=== PATIENT | female | born 1955 | race Caucasian/White ===

== ENCOUNTER 2020-12-20 05:45 | Emergency (ER) | payer MEDICARE, OTHER ==
[2020-12-20] MEDS ORDERED: Nitroglycerin 0.4 MG Tab.SL SL PRN (06:02)
[2020-12-20] MEDS ORDERED: Aspirin 81 MG Tab.Chew PO ONE (06:02)
[2020-12-20] MEDS ORDERED: Morphine 4 MG/ML Syringe IVPUSH PRN (06:02)
--- NOTE | 2020-12-20 06:05 | EDM.PDOC ---
<OfficerMarcin - Last Filed: 12/20/20 06:03> ED HPI GENERAL MEDICAL PROBLEM - General Chief Complaint: Chest Pain Stated Complaint: CHEST FULLNESS Time Seen by Provider: 12/20/20 06:02 Source of Information: Reports: Patient, RN Notes Reviewed History Limitations: Reports: No Limitations - History of Present Illness INITIAL COMMENTS - FREE TEXT/NARRATIVE: 65-year-old female presents emergency department day complaint of chest pain, she states that chest pain started 2 hours prior before presenting to the emergency department she does have some fullness in her chest some pain radiating down both arms. No history of heart disease. Does not feel nauseated no shortness of breath no diaphoresis Middle Chest Pain Score (Numeric/FACES): 4 - Related Data Allergies Allergy/AdvReac Type Severity Reaction Status Date / Time metronidazole [From Flagyl] Allergy Hives Verified 12/20/20 05:53 Home Meds: Home Meds Calcium Carb, Citrate/Vit D3 [Calcium + D3 ER Tablet] 1 tab PO DAILY 12/20/20 [History] Citalopram [Citalopram HBr] 15 mg PO DAILY 12/20/20 [History] Levothyroxine [Synthroid] 100 mcg PO ACBREAKFAST 12/20/20 [History] Lutein 5 mg PO DAILY 12/20/20 [History] Magnesium 250 mg PO DAILY 12/20/20 [History] Past Medical History Endocrine/Metabolic History: Reports: Hypothyroidism Social & Family History - Tobacco Use Tobacco Use Status *Q: Never Tobacco User ED ROS GENERAL - Review of Systems Review Of Systems: See Below Constitutional: Reports: No Symptoms Respiratory: Reports: No Symptoms Cardiovascular: Reports: Chest Pain GI/Abdominal: Reports: No Symptoms ED EXAM, GENERAL - Physical Exam Exam: See Below Exam Limited By: No Limitations General Appearance: Alert, WD/WN, No Apparent Distress Neck: Normal Inspection, Supple, Non-Tender, Full Range of Motion Respiratory/Chest: No Respiratory Distress, Lungs Clear, Normal Breath Sounds, No Accessory Muscle Use, Chest Non-Tender Cardiovascular: Regular Rate, Rhythm, No Murmur GI/Abdominal: Soft, Non-Tender Extremities: No Pedal Edema Departure - Departure Disposition: Home, Self-Care 01 Clinical Impression: Nonspecific chest pain Instructions: Nonspecific Chest Pain, Adult, [id number] Referrals: PCP,None [Primary Care Provider] - Forms: ED Department Discharge Additional Instructions: Use acetaminophen or ibuprofen as needed for pain relief. Recheck with your provider if symptoms persist. Return if worse. Sepsis Event Note (ED) - Evaluation Sepsis Screening Result: No Definite Risk <Alonzo Lieberman - Last Filed: 12/20/20 08:46> Course - Vital Signs Last Recorded V/S: Last Vital Signs Temp 36.7 C 12/20/20 05:55 Pulse 59 L 12/20/20 06:47 Resp 19 12/20/20 06:47 BP 142/69 H 12/20/20 06:47 Pulse Ox 95 12/20/20 06:47 - Orders/Labs/Meds Orders: Active Orders 24 hr Category Date Time Status Cardiac Monitoring [RC] .As Directed Care 12/20/20 06:02 Active EKG Documentation Completion [RC] ASDIRECTED Care 12/20/20 06:03 Active Chest 1V Frontal [CR] Stat Exams 12/20/20 06:03 Taken Morphine Med 12/20/20 06:02 Active 4 mg IVPUSH Q10M PRN Nitroglycerin [Nitrostat] Med 12/20/20 06:02 Active 0.4 mg SL Q5M PRN EKG 12 Lead [EK] Stat Ther 12/20/20 06:03 Ordered Medication Orders Morphine Sulfate (Morphine 4 Mg/Ml Syringe) 4 mg IVPUSH Q10M PRN PRN Reason: Chest Pain Stop: 12/21/20 06:02 Nitroglycerin (Nitroglycerin 0.4 Mg Tab.Sl) 0.4 mg SL Q5M PRN PRN Reason: Chest Pain Stop: 12/21/20 06:03 Last Admin: 12/20/20 06:15 Dose: 0.4 mg Documented by: CELSO Labs: Laboratory Tests 12/20/20 12/20/20 12/20/20 Range/Units 06:14 06:14 08:01 WBC 6.1 (4.5-11.0) K/uL RBC 4.10 (3.30-5.50) M/uL Hgb 12.0 (12.0-15.0) g/dL Hct 36.1 (36.0-48.0) % MCV 88 (80-98) fL MCH 29 (27-31) pg MCHC 33 (32-36) % Plt Count 296 (150-400) K/uL Neut % (Auto) 64.8 (36-66) % Lymph % (Auto) 19.2 L (24-44) % [place] % (Auto) 11.8 H (2-6) % Eos % (Auto) 3.9 (2-4) % Baso % (Auto) 0.3 (0-1) % Sodium 140 (140-148) mmol/L Potassium 3.8 (3.6-5.2) mmol/L Chloride 104 (100-108) mmol/L Carbon Dioxide 28 (21-32) mmol/L Anion Gap 7.9 (5.0-14.0) mmol/L BUN 11 (7-18) mg/dL Creatinine 0.7 (0.6-1.0) mg/dL Est Cr Clr Drug Dosing 77.92 mL/min Estimated GFR (MDRD) > 60 (>60) Glucose 107 H (74-106) mg/dL Calcium 8.5 (8.5-10.1) mg/dL Troponin I < 0.017 < 0.017 (0.000-0.056) ng/mL Meds: Medications Generic Name Dose Route Start Last Admin Trade Name Freq PRN Reason Stop Dose Admin Morphine Sulfate 4 mg 12/20/20 06:02 Morphine 4 Mg/Ml Syringe IVPUSH 12/21/20 06:02 Q10M PRN Chest Pain Nitroglycerin 0.4 mg 12/20/20 06:02 12/20/20 06:15 Nitroglycerin 0.4 Mg Tab.Sl SL 12/21/20 06:03 0.4 mg Q5M PRN Administration Chest Pain Discontinued Medications Generic Name Dose Route Start Last Admin Trade Name Freq PRN Reason Stop Dose Admin Aspirin 324 mg 12/20/20 06:02 12/20/20 06:15 Aspirin 81 Mg Tab.Chew PO 12/20/20 06:03 324 mg ONETIME ONE Administration Ketorolac Tromethamine 30 mg 12/20/20 07:03 Ketorolac 30 Mg/Ml Sdv IVPUSH 12/20/20 07:04 ONETIME ONE Departure - Departure Time of Disposition: 08:44 Condition: Good Sepsis Event Note (ED) - Focused Exam Vital Signs: Vital Signs Temp Pulse Resp BP BP Pulse Ox 12/20/20 06:47 59 L 19 142/69 H 95 07/20/21 06:17 71 19 148/69 H 96 12/20/20 06:15 173/99 H 12/20/20 05:55 36.7 C 67 13 173/66 H 96
[2020-12-20] MEDS ORDERED: Ketorolac 30 MG/ML SDV IVPUSH ONE (07:03)
--- NOTE | 2020-12-20 08:48 | CR ---
CHEST: Portable 12/20/2020 at 6:27 AM CLINICAL HISTORY:Chest pain COMPARISON:None FINDINGS: The heart size, pulmonary vascularity and hilar structures are normal. No infiltrate effusion or pneumothorax is seen. IMPRESSION: No acute cardiopulmonary process.
== END 2020-12-20 09:05 | disposition home or self-care (01) ==
LOC: JP.ED 05:45
DX: R07.9 Chest pain, unspecified (principal); E03.9 Hypothyroidism, unspecified; Z88.1 Allergy status to other antibiotic agents; Z79.899 Other long term (current) drug therapy
CPT/HCPCS: 36415; 71045; 80048; 84484; 85025; 93005; 99285; A9270